=== PATIENT | female | born 2005 | race African-American/Black ===

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

== ENCOUNTER 2025-08-30 09:07 | Emergency (ER) | payer OTHER ==
[~2025-08-30] VITALS: Ht 160 cm; Wt 61.1 kg
[~2025-08-30 09:07] MED LIST changes: +BENZ200C70 PO
[2025-08-30] MEDS ORDERED: NOXI1TAB PO (09:23)
[2025-08-30] MEDS ORDERED: [UNRECOGNIZED DRUG - CODE] (09:23)
[2025-08-30 11:02] LABS: BASO # 0.0 10^3/uL (0.0-0.2); BASO % 0.4 % (0.0-1.0); EOS # 0.2 10^3/uL (0.0-0.5); EOS % 3.7 % (0.0-3.0); LYMPH # 1.7 10^3/uL (1.5-5.0); LYMPH % 35.1 % (24.0-44.0); MONO # 0.4 10^3/uL (0.0-0.8); MONO % 9.1 % (2.0-8.0); NEUTROPHILS # 2.5 10^3/uL (1.5-8.5); NEUTROPHILS % 51.5 % (36.0-66.0); PLATELET COUNT, AUTOMATED 267 10^3/uL (150-450)
[2025-08-30 11:31] LABS: ALT/SGPT 10 U/L (7.0-40); AST/SGOT 24 U/L (<34); CALCIUM LEVEL 9.1 MG/DL (8.5-10.1); CARBON DIOXIDE LEVEL 27 MMOL/L (20-31); CHLORIDE LEVEL 105 MMOL/L (98-107); CK-MB VALUE MASS 1.4 NG/ML (<3.6); CPK CREATINE PHOSPHOKINASE 206 U/L (34-145); CREATININE FOR GFR 0.76 MG/DL (0.55-1.30); GLOMERULAR FILTRATION RATE > 90.0 (>60); MB/CK RELATIVE INDEX 0.67 (< OR =4); POTASSIUM SERUM 4.3 MMOL/L (3.5-5.1); SODIUM LEVEL 140 MMOL/L (136-145)
[2025-08-30 11:37] LABS: HCG, SERUM QUALITATIVE NEGATIVE (NEGATIVE)
[2025-08-30] MEDS ORDERED: ISOVUE-370 76% 100 ML VIAL As Ordered ONE (13:13)
[2025-08-30 14:09] VITALS: BP 143/76; TEMP 97.8; O2SAT 100
== END 2025-08-30 14:22 | disposition home or self-care (01) ==
LOC: M ED 09:07
DX: R07.89 Other chest pain (principal); R06.02 Shortness of breath; F17.290 Nicotine dependence, other tobacco product, uncomplicated; R00.1 Bradycardia, unspecified
CPT/HCPCS: 36415; 71275; 80048; 80076; 82550; 82553; 84443; 84484; 84703; 85025; 85379; 93005; 93041; 94760; 99285; Q9967